=== PATIENT | male | born 1955 | race Caucasian/White ===

== ENCOUNTER 2019-08-25 20:50 | Emergency (ER) | payer MEDICARE, BC ==
[2019-08-25 20:58] VITALS: BP 160/104; PULSE 92; RESP 18; TEMP 98.7
--- NOTE | 2019-08-25 21:12 | ED ---
Fall HPI - General Chief Complaint: Fall Stated Complaint: head injury Time Seen by Provider: 08/25/19 21:02 Source: patient Mode of arrival: ambulatory - History of Present Illness Initial Comments: 63-year-old male patient presents to the emergency department today for evaluation of head injury and right elbow injury. Patient states approximately 2 hours ago he was at work unloading a truck. States another person slipped from the truck and fell landing on top of him causing him to fall backwards and strike his head. He denies any loss of consciousness with the injury. Denies any current headache, blurred vision, double vision, nausea, vomiting, dizziness, or weakness. Patient states that his main concern is the wound to the back of his head and whether or not he requires closure. States he does have an abrasion to the right elbow but is not having any difficulty with range of motion. Denies any radiating pain down to his wrist or hand. Denies numbness or tingling. Patient believes his tetanus vaccine is up-to-date. Denies taking any medication for his symptoms. Patient denies any neck pain, back pain, chest pain, shortness of breath, dizziness, weakness, abdominal pain, or difficulties with bowel movements or urination. - Related Data Home Medications Medication Instructions Recorded Confirmed Cyclosporine, Modified [Gengraf] 25 mg PO Q12H 07/09/15 07/13/15 Losartan [Cozaar] 25 mg PO HS 07/09/15 07/13/15 Multivitamins, Thera [Multivitamin] 1 tab PO DAILY 07/09/15 07/13/15 Allergies Allergy/AdvReac Type Severity Reaction Status Date / Time No Known Allergies Allergy Verified 08/25/19 20:58 Review of Systems ROS Statement: Those systems with pertinent positive or pertinent negative responses have been documented in the HPI. ROS Other: All systems not noted in ROS Statement are negative. Past Medical History Past Medical History: Cancer, Hypertension, Liver Disease Additional Past Medical History / Comment(s): HEPATITIS C. PROSTATE CANCER (SEE IMPLANT/RADIATION). History of Any Multi-Drug Resistant Organisms: None Reported Past Surgical History: Hernia Repair Additional Past Surgical History / Comment(s): LIVER TRANSPLANT IN 1990. Past Anesthesia/Blood Transfusion Reactions: No Reported Reaction Past Psychological History: No Psychological Hx Reported Smoking Status: Never smoker Past Alcohol Use History: None Reported Past Drug Use History: None Reported General Exam Limitations: no limitations General appearance: alert, in no apparent distress, other (This is a well- developed, well-nourished adult male patient in no acute distress. Vital signs upon presentation are temperature 98.7F, pulse 92, respirations 18, blood pressure 160/104, pulse ox 97% on room air.) Head exam: Present: other (. Hematoma with soft tissue swelling to the left posterior scalp. There is coagulated blood. No bony step-off or deformity not ed to palpation around the site. There are 3 small lacerations one less than 1 cm. One is 1 cm, and one is 3 cm. No active bleeding noted to) Eye exam: Present: normal appearance, PERRL, EOMI. Absent: scleral icterus, conjunctival injection, nystagmus, periorbital swelling ENT exam: Present: normal exam, normal oropharynx, mucous membranes moist Neck exam: Present: normal inspection, full ROM, other (Nontender, no step-off, no deformity to firm midline palpation of the posterior cervical spine. Full range of motion without pain or limitation.). Absent: tenderness, meningismus, lymphadenopathy Respiratory exam: Present: normal lung sounds bilaterally. Absent: respiratory distress, wheezes, rales, rhonchi, stridor Cardiovascular Exam: Present: regular rate, normal rhythm, normal heart sounds. Absent: systolic murmur, diastolic murmur, rubs, gallop, clicks GI/Abdominal exam: Present: soft, normal bowel sounds. Absent: distended, tenderness, guarding, rebound, rigid Extremities exam: Present: full ROM, tenderness (Mild right elbow), normal capillary refill, other (There is superficial abrasion noted to the right posterior elbow. Full range of motion is intact. No bony tenderness. Skin to the right arm is pink, warm, dry. Cap refills less than 3 seconds. Radial pulses 2+ and equal bilaterally). Absent: normal inspection, pedal edema, joint swelling, calf tenderness Back exam: Present: normal inspection, other (Nontender, no step-off, no deformity to firm midline palpation of the thoracic and lumbar vertebrae. Full range of motion without pain or limitation.). Absent: vertebral tenderness Neurological exam: Present: alert, oriented X3, CN II-XII intact Psychiatric exam: Present: normal affect, normal mood Skin exam: Present: warm, dry, intact, normal color. Absent: rash Course Vital Signs 08/25/19 20:52 Temperature 98.7 F Pulse Rate 92 Respiratory 18 Rate Blood Pressure 160/104 O2 Sat by Pulse 97 Oximetry Procedures - Laceration Laceration #1 Consent Obtained: verbal consent Indication: laceration Site: scalp Size (cm): 1 Description: linear, clean Depth: simple, single layer Size of Sutures: other (Hawa) Number of Sutures: 1 Patient Tolerated Procedure: well, no complications Laceration #2 Consent Obtained: verbal consent Indication: laceration Site: scalp Size (cm): 3 Description: linear Depth: simple, single layer Size of Sutures: other (hawa) Number of Sutures: 3 Patient Tolerated Procedure: well, no complications Medical Decision Making - Medical Decision Making 63-year-old male patient presents to the emergency department today for evaluation after sustaining a head injury. Physical examination did reveal a right posterior scalp hematoma with 3 small lacerations. Lacerations were repaired as documented. Patient is currently denies any headache. He is neurologically intact with no focal deficits. We discussed computed tomography scan, given symptoms and exam findings we will hold off on this at this time. He is educated regarding signs or symptoms of worsening head injury. The be discharged to follow-up with her primary care physician for recheck in 1-2 days. He is instructed to contact his physician to find out tetanus status tomorrow. Return parameters were discussed in detail. He verbalizes understanding and agrees with this plan. Disposition Clinical Impression: Head injury, Scalp hematoma, Scalp laceration Disposition: HOME SELF-CARE Condition: Good Instructions (If sedation given, give patient instructions): Laceration (ED), Head Injury (ED), Staple Care (ED), Hematoma (ED) Additional Instructions: Keep wound clean and dry. Monitor for signs of infection including but not limited to swelling, drainage of pus, fever, or chills. Monitor for signs or symptoms of worsening head injury including but not limited to severe headache, visual disturbance, dizziness, vomiting, or confusion. Follow-up with your primary care physician for recheck in 1-2 days. Return to the emergency Department in 7 days to have hawa removed. Return to the emergency department for any other new, worsening, or concerning symptoms. Is patient prescribed a controlled substance at d/c from ED?: No Referrals: Grayson Mccullough DO [Primary Care Provider] - 1-2 days Time of Disposition: 21:25
== END 2019-08-25 21:45 | disposition home or self-care (01) ==
LOC: EC 20:50
DX: S01.01XA Laceration without foreign body of scalp, initial encounter (principal); S50.311A Abrasion of right elbow, initial encounter; I10 Essential (primary) hypertension; Z79.899 Other long term (current) drug therapy; Z92.25 Personal history of immunosuppression therapy; Z85.46 Personal history of malignant neoplasm of prostate; Z94.4 Liver transplant status; W20.8XXA Other cause of strike by thrown, projected or falling object, initial encounter; W03.XXXA Other fall on same level due to collision with another person, initial encounter; Y93.89 Activity, other specified; Y92.69 Other specified industrial and construction area as the place of occurrence of the external cause
CPT/HCPCS: 12002; 99283

== ENCOUNTER 2025-01-31 10:39 | Day surgery (SDC) | payer MEDICARE, BC ==
[2025-01-31] MEDS: IV FLUID CONTINUATION 1,000 ML IV ONE (11:10)
[2025-01-31] MEDS: LACTATED RINGERS 1,000 ML IV SCH (11:31)
[2025-01-31 11:34] VITALS: TEMP 97.3
[2025-01-31] MEDS ORDERED: PROPOFOL 10 MG/ML 20 ML VIAL IV ONE (11:56)
--- NOTE | 2025-01-31 12:09 | P.PCN ---
Date of Procedure: 01/31/25 Procedure(s) Performed: BRIEF HISTORY: Patient is a 69-year-old pleasant white male scheduled for an elective colonoscopy as a part of screening for colon cancer. PROCEDURE PERFORMED: Colonoscopy. PREOPERATIVE DIAGNOSIS: Screening for colon cancer. IV sedation per Anesthesia. PROCEDURE: After informed consent was obtained, the patient, was brought into the endoscopy unit. IV sedation was administered by Anesthesia under continuous monitoring. Digital rectal examination was normal. Initially the Olympus CF-160 flexible video colonoscope was then inserted in the rectum, gradually advanced into the cecum without any difficulty. Careful examination was performed as the scope was gradually being withdrawn. Ileocecal valve and the appendiceal orifice were visualized and appeared normal. Prep was excellent. Mucosa of the cecum, ascending colon, transverse colon, descending colon, sigmoid colon, and rectum appeared normal. Retroflexion was performed in the rectum and no lesions were seen. The patient tolerated the procedure well. IMPRESSION: Normal-appearing colon from rectum to cecum with no evidence of colorectal neoplasia. RECOMMENDATIONS: Findings of this examination were discussed with the patient as well as his family. He was advised to have repeat screening colonoscopy at a [facility]..
[2025-01-31 12:31] VITALS: BP 120/98; PULSE 93; RESP 16
== END 2025-01-31 12:48 | disposition home or self-care (01) ==
LOC: ORWHC2ENDO 10:39
PROVIDERS: ATTEND Internal Medicine Gastroenterology
DX: Z12.11 Encounter for screening for malignant neoplasm of colon (principal); I10 Essential (primary) hypertension; Z79.82 Long term (current) use of aspirin; Z79.899 Other long term (current) drug therapy; Z85.46 Personal history of malignant neoplasm of prostate; Z86.19 Personal history of other infectious and parasitic diseases
CPT/HCPCS: J2704; G0121